=== PATIENT | male | born 1950 | race Caucasian/White ===

== ENCOUNTER 2019-07-28 04:14 | Inpatient (IN) ==
[2019-07-28] MEDS ORDERED: ZOFRAN IV ONE (04:20)
[2019-07-28] MEDS ORDERED: NS 1,000 ML IV ONE ×2 (04:42→09:21)
--- NOTE | 2019-07-28 04:59 | PROVIDER DOCUMENTATION ---
HPI-Abdominal Pain/GI Problem - General Chief Complaint: Nausea/Vomiting Stated Complaint: POSS FOOD POISONING, VOMITING Time Seen by Provider: 07/28/19 04:41 Source: patient Allergies/Adverse Reactions: Patient Allergies Allergy/AdvReac Type Severity Reaction Status Date / Time No Known Allergies Allergy Verified 03/21/12 16:31 Home Medications: Home Medication List Medication Instructions Recorded Confirmed Last Taken Type Fish Oil/Dha/Epa [Fish Oil 1,200 4 each PO DAILY 03/21/12 07/28/19 09/18/12 History mg Fish Oil] LISINOpril [Prinivil] 10 mg PO DAILY 03/21/12 07/28/19 09/18/12 History Metoprolol Succinate E.r. [Toprol 50 mg PO DAILY 03/21/12 07/28/19 09/18/12 History Xl] Ranolazine [Ranexa] 500 mg PO BID 03/21/12 07/28/19 09/18/12 History Rosuvastatin Calcium [Crestor] 20 mg PO DAILY 03/21/12 07/28/19 09/18/12 History Aspirin 325 mg PO DAILY 03/22/12 07/28/19 09/18/12 History Clopidogrel Bisulfate [Plavix] 75 mg PO DAILY 03/22/12 07/28/19 09/18/12 History Vitamin B Complex [B-100 Complex] 1 each PO DAILY 09/18/12 07/28/19 09/18/12 History Ondansetron HCl [Zofran] 4 mg PO TID PRN PRN #20 tablet 09/19/12 07/28/19 Unknown Rx - History of Present Illness-ABD Nature of Presenting Problems: Patient states that he ate some summer sausage ( deer meat) at home and then went out to eat. Just before eating he began to have stomach cramps. He tried to eat and then began to have nausia vomiting and diarrhea. Abdominal Pain Onset Location: reports: generalized abdomen Pain Radiation: reports: no radiation Quality of Pain: reports: aching, sharp, stabbing Severity in ED: reports: moderate Onset/Duration: reports: 1-3 hours ago Timing: reports: still present Activities at Onset: reports: none Modifying Factors: improves with: nothing Associated Symptoms: reports: denies symptoms Last BM: this evening Dark Stools Present?: reports: none noticed Rectal Bleeding: reports: none Rectal Pain: reports: none Emesis Description: reports: clear Bruising or Bleeding Gums?: No Similar Symptoms Previously?: No Recently seen or treated by another doctor?: No Review of Systems - Adult - REVIEW OF SYSTEMS - ADULT Constitutional: reports: chills, fever Eyes: reports: no symptoms reported Ears, Nose, Mouth & Throat: reports: no symptoms reported Cardiovascular: reports: no symptoms reported Respiratory: reports: no symptoms reported Gastrointestinal: reports: see HPI Genitourinary: reports: no symptoms reported Musculoskeletal: reports: muscle aches Integumentary: reports: no symptoms reported Neurological: reports: no symptoms reported Psychiatric: reports: no symptoms reported Hematologic/Lymphatic: reports: no symptoms reported Past History - Adult - PAST MEDICAL HISTORY-ADULT Review of Records: reports: Old Records Reviewed, Nursing Assessment Review Physical Exam-General - CONSTITUTIONAL General Appearance: appears well, alert, no apparent distress - EYES Eyes: PERRL/EOMI, pink conjunctivae - HEAD, EARS, NOSE, MOUTH & THROAT HENMT: normocephalic/atraumatic, TMs normal, pharynx normal - NECK Neck: non-tender, full range of motion, supple - RESPIRATORY Respiratory: chest non-tender, lungs clear, normal breath sounds - CARDIOVASCULAR Cardiovascular: normal peripheral pulses, regular rate, rhythm, no edema, no gallop, no JVD, no murmur - GASTROINTESTINAL (ABDOMEN) Abdominal Exam: normal bowel sounds, no pulsatile mass, tenderness (diffuse) - MUSCULOSKELETAL Back Exam: normal inspection, no CVA tenderness Extremity: normal range of motion, non-tender - SKIN Integumentary: normal color, normal turgor, warm/dry - 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, grossly normal - PSYCHIATRIC Psych/Mental Status: normal mood/affect Progress - PLAN OF CARE/RESULTS Progress/Plan/Lab Results: Vital Signs - 8 hr 07/28/19 04:17 Temperature 97.4 F L Pulse Rate 83 Respiratory Rate 20 Blood Pressure 161/72 O2 Sat by Pulse Oximetry 96 Orders Category Date Time Status Saline Loc DIRECTED Care 07/28/19 04:20 Active NPO Diet 07/28/19 04:20 Active AMYLASE [CHEM] Stat Lab 07/28/19 04:35 Ordered CBC WITH ELECTRONIC DIFF [HEME] Stat Lab 07/28/19 04:35 Ordered COMPREHENSIVE METABOLIC PANEL [CHEM] Stat Lab 07/28/19 04:35 Ordered Flu Swab [INFLUENZA SCREEN A/B] Stat Lab 07/28/19 04:36 Ordered LIPASE [CHEM] Stat Lab 07/28/19 04:35 Ordered 0.9% Sodium Chloride Inj [Ns] 1,000 ml Med 07/28/19 04:42 Active IV 999 mls/hr Ondansetron [Zofran] Med 07/28/19 04:20 Discontinued 4 mg IV NOW ONE Result Diagrams: 07/28/19 04:35 07/28/19 04:35 - REASSESSMENT Reassessment #1 Time Reassessed: 08:09 (assumed care @ S/O) - CONSULTS/PCP/HOSPITALIST Notification #1 *Consult/PCP/Hospitalist*: ?? Time Discussed: 07:41 (no answer, so repaged) #2 Consult: ?? Time Discussed: 08:10 (no answer, so repaged @[id number]) #3 Consult: ?? Time Discussed: 08:43 Consult Disposition: Will see in ED, Admit - CHANGE OF SHIFT REPORT (ED Provider) 1 Report Given and Care Transferred to:: Dr Saldivar Time of Transfer: 07:00 Items Pending: CT/MRI Results Departure - Departure Date of Disposition Decision: 07/28/19 Time of Disposition Decision: 07:40 DIAGNOSIS: Pancreatitis, acute Qualifiers: Pancreatitis type: unspecified pancreatitis type Acute pancreatitis complication: unspecified Qualified Code(s): K85.90 - Acute pancreatitis without necrosis or infection, unspecified Disposition: ADMITTED INPATIENT 09 Certified Medical Emergency: Emergent Condition: Good Referrals and Follow-Ups: None,PCP [Primary Care Provider] - - Critical Care Note This patient required my direct & personal management of CC.: No Attestation - Physician/ THIERRY Attestation Patient care was provided by Advanced Practice Provider:: No The physician spent face to face time with patient:: Yes Advanced Practice Provider documentation review:: Supervising physician onsite and consulted in the evaluation and care of this patient. The physician did have a face to face encounter with the patient.
[2019-07-28 05:09] LABS: BASO# 0.02 X1000 (0.0-0.2); BASO% 0.1 % (0.0-0.8); EOS# 0.06 X1000 (0.0-0.7); EOS% 0.4 % (0.0-10.0); HEMATOCRIT 41.8 % (42.0-52.0); IMM GRAN# 0.03 X1000 (0.0-0.04); IMM GRAN% 0.2 % (0.0-0.5); LYMPH% 8.2 % (20.5-51.1); MCH 29.9 PG (27-31); MCHC 33.5 g/dL (33-37); MCV 89.1 FL (81-99); MONO# 1.29 X1000 (0.11-0.59); MONO% 8.8 % (1.7-9.3); NEUT# 12.08 X1000 (1.4-6.5); NEUT% 82.3 % (42.2-75.2); PLT 262 X1000 (130-400); RBC 4.69 XMIL (4.7-6.1); RDW 13.6 % (11.5-14.5); WBC 14.68 X1000 (4.8-10.8)
[2019-07-28] MEDS ORDERED: DEMEROL IV ONE ×2 (05:40→06:35)
[2019-07-28 05:54] LABS: ALB/GLOB RATIO 1.4; ALBUMIN 4.2 g/dL (3.5-5.0); CALCIUM 9.1 mg/dL (8.8-10.2); CREATININE 1.3 mg/dL (0.7-1.2); POTASSIUM 4.1 mmol/L (3.5-5.1); TOTAL BILIRUBIN 2.67 mg/dL (0.20-1.00); TOTAL PROTEIN 7.3 g/dL (6.3-8.3)
[2019-07-28] MEDS ORDERED: SODIUM CHLORIDE 0.9% INJ ONE (06:36)
[2019-07-28] MEDS ORDERED: PHENERGAN IV ONE (06:36)
--- NOTE | 2019-07-28 07:09 | Diag Imaging Result Doc PS360 ---
EXAM: CT ABD/PELVIS W/IV CONT ONLY HISTORY: acute pancreatitis TECHNIQUE: CT abdomen and pelvis with intravenous contrast, but without oral contrast. COMPARISON: None. FINDINGS: The heart is mildly enlarged. There is fatty infiltration of the liver. The gallbladder is contracted. There is inflammation about the pancreas and duodenum. 12 mm hypodense nodule in the pancreas between the head and body. No pancreatic calcifications. No splenomegaly. There is a small hiatal hernia. There are several renal cysts. The largest arises from the left kidney measuring 3.9 cm. No hydronephrosis. No aortic aneurysm. No bowel obstruction. No inflammation about the cecum. No abscess. Urinary bladder is moderately distended. Mild thickening to the wall. Normal prostate. IMPRESSION: 1.Acute pancreatitis with a small pseudocyst 2.Small hiatal hernia 3.There is fatty infiltration of the liver 4.Renal cysts 5.Mild thickening to the urinary bladder which may be due to incomplete distention, but could represent mild cystitis This exam was performed using automated exposure control, adjustment of mA or kV according to patient size, and/or use of iterative reconstruction technique. Electronically signed by Deny Mendoza 07/28/2019 7:07 AM
[2019-07-28] MEDS ORDERED: DILAUDID IV PRN (09:21)
[2019-07-28] MEDS ORDERED: ZOFRAN IV PRN (09:21)
[2019-07-28 09:50] VITALS: BP 125/64
[2019-07-28] MEDS ORDERED: DEMEROL IV PRN (09:58)
[2019-07-28] MEDS ORDERED: LR 1,000 ML IV SCH (10:45)
--- NOTE | 2019-07-28 12:19 | HISTORY AND PHYSICAL ---
CHIEF COMPLAINT: Abdominal aching and cramping. HISTORY OF PRESENT ILLNESS: Mr. Burt is a 69-year-old, male with an extensive past medical history of coronary artery disease, status post CABG and stenting, hypertension, and hyperlipidemia, who came to the ED complaining of abdominal cramping and aching since yesterday. He reported that he ate some deer summer sausage around 11:00 with some crackers, and then he went to lunch and had some pizza, and around 1:30, he started having the aching and cramping. He did have some nausea, and vomited one time yesterday. He came to the ED to be evaluated. He threw up once in the ED. He also had some episodes of diarrhea associated with some cold sweats. Workup in the ED showed transaminitis, elevated amylase and lipase. CT of the abdomen and pelvis showed acute pancreatitis with a pseudocyst. He was given a fluid bolus and symptomatic treatment with pain regimen and antiemetics, made nothing by mouth. The patient is requesting to be transferred to [place] [facility]. We put a call in, and report that they do have beds. We are currently waiting on a call back at this time before we admit him to the hospital. PAST MEDICAL HISTORY: 1. Coronary artery disease, status post multiple stents, most recent being twice in 2019, CABG. 2. Hypertension. 3. Hyperlipidemia. PAST SURGICAL HISTORY: 1. CABG. 2. Multiple stenting, most recently in 2019, two separate times. 3. Right shoulder arthroscopy. 4. Cholecystectomy. FAMILY HISTORY: Mother with an OH, but she of old age. A brother who had CABG. SOCIAL HISTORY: He is an ex-smoker who smoked 20 to 25 years, 1 to 1-1/2 packs per day. He quit smoking many years ago. The only time he drinks alcohol is one beer on his birthday. He is a disabled . REVIEW OF SYSTEMS: Complete and negative, except for those mentioned in the HPI. He reports no shortness of breath, no cardiac-type chest pain, no constipation, no dysuria, no dizziness. PHYSICAL EXAMINATION: VITAL SIGNS: Temperature is 98.3 degrees, heart rate 61, respirations 16, blood pressure 125/64, O2 is 95% on room air. GENERAL: Mr. Burt is a pleasant, 69-year-old, male, who is sitting up in the stretcher in the ED, in no acute distress. HEENT: Atraumatic, normocephalic. PERRL. NECK: Supple. Trachea midline. CARDIOVASCULAR: S1, S2 appreciated. No murmurs, gallops, rubs noted. RESPIRATORY: Lung sounds are clear bilaterally. GASTROINTESTINAL: Soft. Tender to the right upper quadrant. Positive bowel sounds x4 quadrants. LOWER EXTREMITIES: Negative for edema. NEUROLOGIC: No focal deficits noted. DIAGNOSTIC DATA: Abdomen and pelvis CT showed acute pancreatitis with a small pseudocyst, small hiatal hernia, fatty infiltration of the liver, renal cyst, mild thickening of the urinary bladder, which may be due to incomplete distention, but could represent mild cystitis. LABORATORY DATA: White count 14, hemoglobin and hematocrit 14 and 41, platelet count is 262,000. Sodium 141, potassium 4.1, BUN 17, creatinine 1.3, blood glucose is 150. Total bilirubin 2.67, AST 377, ALT 357, alkaline phosphatase 124, amylase 2186, lipase 2691. ASSESSMENT AND PLAN: 1. Acute pancreatitis with a small pseudocyst. The patient reports he just had his cholesterol checked and everything was within normal limits. He denies any alcohol use or abuse. He states he only drinks alcohol on his birthday. He does not take any hydrochlorothiazide. However, he is on an angiotensin-converting enzyme inhibitor. He has been made nothing by mouth. We will continue with as needed antiemetics and pain regimen. [facility] currently awaiting [facility] call [facility] for [facility]. 2. Transaminitis and elevated amylase and lipase secondary to #1. 3. Extensive coronary disease, status post coronary artery bypass graft and stenting. 4. Acute kidney injury. Will continue with hydration. 5. Hyperglycemia with no history of diabetes. Further recommendation to follow physician evaluation, laboratory and diagnostic data. Transfer: Patient was accepted by the [facility] in [place] Dictated by BHAVIN Lucio for Kalee Ackerman MD cc: MD Chiquita Keys NP MTDD
== END 2019-07-28 17:35 | disposition short-term general hospital (02) | DRG 439 ==
LOC: ED 04:14 → EDIPHOLD 09:07
PROVIDERS: ATTEND Internal Medicine